=== PATIENT | female | born 2000 | race Two or more races ===

== ENCOUNTER 2021-05-07 14:24 | Inpatient (IN) | payer OTHER ==
[~2021-05-07] VITALS: Ht 160 cm; Wt 78.9 kg
[2021-05-07] MEDS ORDERED: FLAGYL500MG PO (14:37)
[2021-05-07] MEDS ORDERED: LEVOFLOXACIN500 MG PO (14:37)
[2021-05-11] MEDS ORDERED: SURFAK240 M1 PO (12:53)
[2021-05-11] MEDS ORDERED: ANALPRAM HC 1%30 GM TOP (12:53)
== END 2021-05-11 17:25 | disposition home or self-care (01) | DRG 394 ==
LOC: ER 14:24 → SURH 16:35 → SURG 16:35 → SURH 16:51
PROVIDERS: Colon & Rectal Surgery; ADMIT Surgery; ATTEND Surgery
PROC: 0D9 Gastrointestinal System, Drainage (ICD-10-PCS; principal; 2021-05-10 13:30)
DX: K61.39 Other ischiorectal abscess (principal); L03.317 Cellulitis of buttock; B96.29 Other Escherichia coli [E. coli] as the cause of diseases classified elsewhere; B95.2 Enterococcus as the cause of diseases classified elsewhere; B96.89 Other specified bacterial agents as the cause of diseases classified elsewhere; Z20.822 Contact with and (suspected) exposure to COVID-19

== ENCOUNTER → 2021-10-02 08:00 | Outpatient (CLI) | payer OTHER ==
[~2021-10-02 08:00] MED LIST: ANALPRAM HC 1%30 GM TOP; FLAGYL500MG PO; LEVOFLOXACIN500 MG PO; OXYCODONE HCL5 MG PO; SURFAK240 M1 PO
== END | disposition home or self-care (01) ==
LOC: LAB 08:00 → SURH 10-04 10:30 → EDSTATUS 10-04 10:30 → SURH 10-04 13:30
PROVIDERS: ATTEND Colon & Rectal Surgery
DX: Z20.822 Contact with and (suspected) exposure to COVID-19 (principal)